=== PATIENT | male | born 1935 | race Hispanic/Latino ===

== ENCOUNTER 2018-08-06 17:11 | Inpatient (IN) | payer OTHER, MEDICARE ==
[~2018-08-06] VITALS: Ht 167.6 cm; Wt 108.9 kg
[~2018-08-06 17:11] MED LIST: ACET1TAB25 PO; ATOR20TA65 PO; CHLO50TA PO; CHOL200074 PO; DIGO125T87 PO; FINA5TAB41 PO; GLIM4TAB3 PO; INSU100C6 SQ; INSU3INS3 SQ; LACT10SO PO; LACT1CAP79 PO; LINA5TAB PO; LOPE2CAP PO; LOSA50TA25 PO; MECL-111 PO; OMEG-148 PO; SITA50TA PO; VITA150T PO; WARF-57 PO; WARF7.5T49 PO
[2018-08-06 17:42] LABS: POTASSIUM 5.2 mmol/L (3.5-5.1)
[2018-08-06 17:47] LABS: ALBUMIN 2.8 g/dL (3.5-5.0); BILIRUBIN,TOTAL 0.5 mg/dL (0.2-1.0)
[2018-08-06 18:11] LABS: INR > 7.00 (0.85-1.15); PROTHROMBIN TIME > 63.0 SEC (9.6-11.6)
[2018-08-06 18:24] LABS: BASOPHILS % (AUTO) 0.6 % (0.0-5.0); EOSINOPHILS % (AUTO) 1.7 % (0.0-8.0); HEMATOCRIT 28.3 % (42-54); LYMPHOCYTES % (AUTO) 13.3 % (21.0-51.0); MEAN CORPUSCULAR HEMOGLOBIN 24.2 pg (27.0-33.0); MEAN CORPUSCULAR HGB CONC 31.6 g/dL (32.0-36.0); MEAN CORPUSCULAR VOLUME 76.5 fL (79-99); NEUTROPHILS % (AUTO) 74.4 % (40.0-77.0); NUCLEATED RED BLOOD CELLS 0.1 % (0.0-0.19); PLATELET COUNT (AUTO) 172 K/uL (130-400); RED CELL DISTRIBUTION WIDTH 20.4 % (11.0-15.5); WHITE BLOOD COUNT (AUTO) 5.1 K/uL (4.8-10.8)
[2018-08-06] MEDS ORDERED: PHYTONADIONE 10 MG/1 ML AMP ONE (20:28)
[2018-08-07] VITALS (7 sets, daily range): BP systolic 118–144; BP diastolic 51–74
[2018-08-07] MEDS ORDERED: HUM10VIA SQ ×2 (02:19)
[2018-08-07] MEDS ORDERED: GABA-531 PO (02:19)
[2018-08-07] MEDS ORDERED: SPIR50TA5 PO (02:19)
[2018-08-07] MEDS ORDERED: DEXTROSE 50%-WATER 50 ML DISP.SYRIN IV PRN (03:45)
[2018-08-07] MEDS ORDERED: PHARMACY COMMUNICATION MISC SCH (03:45)
[2018-08-07] MEDS ORDERED: GLUCAGON 1MG KIT 1 MG ML IM PRN (03:45)
[2018-08-07] MEDS ORDERED: ONDANSETRON HCL MDV 20ML 2 MG/ML VIAL IVP PRN (03:45)
[2018-08-07 04:52] LABS: BASOPHILS % (AUTO) 0.6 % (0.0-5.0); EOSINOPHILS % (AUTO) 3.9 % (0.0-8.0); HEMATOCRIT 27.9 % (42-54); LYMPHOCYTES % (AUTO) 20.9 % (21.0-51.0); MEAN CORPUSCULAR HGB CONC 31.4 g/dL (32.0-36.0); MEAN CORPUSCULAR VOLUME 76.5 fL (79-99); MONOCYTES % (AUTO) 12.7 % (3.0-13.0); NEUTROPHILS % (AUTO) 61.9 % (40.0-77.0); PLATELET COUNT (AUTO) 167 K/uL (130-400); RED BLOOD CELL COUNT(AUTO) 3.65 MIL/uL (4.50-6.20); RED CELL DISTRIBUTION WIDTH 20.8 % (11.0-15.5); WHITE BLOOD COUNT (AUTO) 4.4 K/uL (4.8-10.8)
[2018-08-07 05:07] LABS: ALBUMIN 2.6 g/dL (3.5-5.0); BILIRUBIN,TOTAL 0.5 mg/dL (0.2-1.0); CREATININE 1.9 mg/dL (0.5-1.5); TOTAL PROTEIN, SERUM 5.6 g/dL (6.0-8.3)
[2018-08-07 05:15] LABS: PARTIAL THROMBOPLASTIN TIME 76.3 SEC (26.3-35.5)
[2018-08-07 05:16] LABS: PROTHROMBIN TIME > 63.0 SEC (9.6-11.6)
[2018-08-07 05:18] LABS: INR > 7.00 (0.85-1.15)
[2018-08-07] MEDS ORDERED: LABETALOL 20 MG/4 ML DISP.SYRIN IV PRN (08:00)
[2018-08-07] MEDS ORDERED: ACETAMINOPHEN EXTRA STRENGTH 500 MG TABLET PO PRN (08:00)
[2018-08-07] MEDS: GABAPENTIN 300 MG CAPSULE PO SCH ×2 (10:25→19:50)
[2018-08-07] MEDS: LINAGLIPTIN 5 MG TABLET PO SCH (10:25)
[2018-08-07] MEDS: FINASTERIDE 5 MG TABLET PO SCH (10:25)
[2018-08-07] MEDS: SPIRONOLACTONE 25 MG TAB PO SCH ×2 (10:25→19:50)
[2018-08-07] MEDS: PANTOPRAZOLE 40 MG/VIAL IVP SCH ×2 (10:26→20:39)
[2018-08-07] MEDS: DIGOXIN 125 MCG TABLET PO SCH (10:26)
[2018-08-07] MEDS: PHYTONADIONE 10 MG/1 ML AMP SQ SCH (10:35)
[2018-08-07] MEDS: INSULIN HUMULIN R 100 UNIT/ML 3ML SQ SCH ×3 (11:30→20:50)
[2018-08-07 19:01] LABS: HEMATOCRIT 27.1 % (42-54)
[2018-08-07 19:41] LABS: INR 3.64 (0.85-1.15); PROTHROMBIN TIME 37.3 SEC (9.6-11.6)
[2018-08-07] MEDS: ATORVASTATIN CALCIUM 20 MG TABLET PO SCH (19:50)
[2018-08-07] MEDS: LOSARTAN 50 MG TABLET PO SCH (19:50)
[2018-08-08] VITALS (18 sets, daily range): BP systolic 97–154; BP diastolic 49–78
[2018-08-08 03:13] LABS: HEMATOCRIT 25.3 % (42-54); MEAN CORPUSCULAR HEMOGLOBIN 24.1 pg (27.0-33.0); MEAN CORPUSCULAR HGB CONC 31.6 g/dL (32.0-36.0); MEAN CORPUSCULAR VOLUME 76.3 fL (79-99); NUCLEATED RED BLOOD CELLS 0.1 % (0.0-0.19); PLATELET COUNT (AUTO) 150 K/uL (130-400); RED BLOOD CELL COUNT(AUTO) 3.32 MIL/uL (4.50-6.20); RED CELL DISTRIBUTION WIDTH 20.3 % (11.0-15.5); WHITE BLOOD COUNT (AUTO) 4.2 K/uL (4.8-10.8)
[2018-08-08 03:22] LABS: CREATININE 2.1 mg/dL (0.5-1.5); POTASSIUM 5.2 mmol/L (3.5-5.1)
[2018-08-08 03:23] LABS: INR 2.46 (0.85-1.15); PROTHROMBIN TIME 25.4 SEC (9.6-11.6)
[2018-08-08] MEDS: INSULIN HUMULIN R 100 UNIT/ML 3ML SQ SCH ×4 (06:24→21:58)
[2018-08-08] MEDS ORDERED: PROPOFOL 10 MG/ML 20ML VIAL IV ONE ×2 (07:57)
[2018-08-08] MEDS: PHYTONADIONE 10 MG/1 ML AMP SQ SCH (10:13)
[2018-08-08] MEDS: SPIRONOLACTONE 25 MG TAB PO SCH ×2 (10:13→21:55)
[2018-08-08] MEDS: LINAGLIPTIN 5 MG TABLET PO SCH (10:13)
[2018-08-08] MEDS: PANTOPRAZOLE 40 MG/VIAL IVP SCH ×2 (10:17→21:55)
[2018-08-08] MEDS: GABAPENTIN 300 MG CAPSULE PO SCH ×2 (10:17→21:55)
[2018-08-08] MEDS: DIGOXIN 125 MCG TABLET PO SCH (10:17)
[2018-08-08] MEDS: FINASTERIDE 5 MG TABLET PO SCH (10:17)
[2018-08-08 18:47] LABS: HEMATOCRIT 28.9 % (42-54)
[2018-08-08 18:59] LABS: INR 1.64 (0.85-1.15); PARTIAL THROMBOPLASTIN TIME 33.8 SEC (26.3-35.5); PROTHROMBIN TIME 17.1 SEC (9.6-11.6)
[2018-08-08] MEDS: ATORVASTATIN CALCIUM 20 MG TABLET PO SCH (21:55)
[2018-08-08] MEDS: LOSARTAN 50 MG TABLET PO SCH (21:55)
[2018-08-09 03:13] VITALS: BP 112/66
[2018-08-09 05:24] LABS: BASOPHILS % (AUTO) 0.7 % (0.0-5.0); EOSINOPHILS % (AUTO) 3.3 % (0.0-8.0); HEMATOCRIT 26.9 % (42-54); LYMPHOCYTES % (AUTO) 20.3 % (21.0-51.0); MEAN CORPUSCULAR HEMOGLOBIN 24.2 pg (27.0-33.0); MEAN CORPUSCULAR HGB CONC 31.9 g/dL (32.0-36.0); MEAN CORPUSCULAR VOLUME 75.9 fL (79-99); MONOCYTES % (AUTO) 9.4 % (3.0-13.0); NEUTROPHILS % (AUTO) 66.3 % (40.0-77.0); PLATELET COUNT (AUTO) 185 K/uL (130-400); RED BLOOD CELL COUNT(AUTO) 3.54 MIL/uL (4.50-6.20); RED CELL DISTRIBUTION WIDTH 20.4 % (11.0-15.5); WHITE BLOOD COUNT (AUTO) 4.6 K/uL (4.8-10.8)
[2018-08-09 05:38] LABS: INR 1.53 (0.85-1.15); PROTHROMBIN TIME 15.9 SEC (9.6-11.6)
[2018-08-09 05:49] LABS: ALBUMIN 2.7 g/dL (3.5-5.0); POTASSIUM 5.7 mmol/L (3.5-5.1)
[2018-08-09] MEDS: INSULIN HUMULIN R 100 UNIT/ML 3ML SQ SCH ×4 (06:09→21:06)
[2018-08-09] MEDS ORDERED: SODIUM POLYSTYRENE SULFONATE 15 GM/60 ML ML ONE (06:14)
[2018-08-09] MEDS ORDERED: CALCIUM GLUCONATE 1 GM/10 ML VIAL IV SCH (06:15)
[2018-08-09] MEDS: SODIUM POLYSTYRENE SULFONATE 15 GM/60 ML ML PO SCH (06:19)
[2018-08-09] MEDS ORDERED: CALCIUM GLUCONATE 1 GM in SODIUM CHLORIDE 0.9% 50 ML IV SCH (06:30)
[2018-08-09 08:18] VITALS: BP 126/56
[2018-08-09] MEDS: LINAGLIPTIN 5 MG TABLET PO SCH (09:01)
[2018-08-09] MEDS: DIGOXIN 125 MCG TABLET PO SCH (09:01)
[2018-08-09] MEDS: SPIRONOLACTONE 25 MG TAB PO SCH (09:02)
[2018-08-09] MEDS: PANTOPRAZOLE 40 MG/VIAL IVP SCH ×2 (09:02→19:43)
[2018-08-09] MEDS: GABAPENTIN 300 MG CAPSULE PO SCH ×2 (09:02→19:44)
[2018-08-09] MEDS: FINASTERIDE 5 MG TABLET PO SCH (10:07)
[2018-08-09 11:08] LABS: HEMATOCRIT 26.8 % (42-54)
[2018-08-09 12:07] VITALS: BP 128/67
[2018-08-09] MEDS ORDERED: ALBUTEROL SULFATE 0.083% 2.5 MG/3 ML INH IH ONE (15:45)
[2018-08-09] MEDS ORDERED: SODIUM POLYSTYRENE SULFONATE 15 GM/60 ML ML PO SCH (16:15)
[2018-08-09 16:20] VITALS: BP 134/59
[2018-08-09 18:01] LABS: HEMATOCRIT 28.2 % (42-54)
[2018-08-09 19:00] VITALS: BP 108/92
[2018-08-09] MEDS ORDERED: WARFARIN SODIUM 7.5 MG TAB PO SCH (19:15)
[2018-08-09] MEDS: ATORVASTATIN CALCIUM 20 MG TABLET PO SCH (19:44)
[2018-08-09] MEDS: LOSARTAN 50 MG TABLET PO SCH (19:44)
[2018-08-09 23:00] VITALS: BP 127/66
[2018-08-10 03:00] VITALS: BP 113/54
[2018-08-10] MEDS: SODIUM POLYSTYRENE SULFONATE 15 GM/60 ML ML PO SCH (05:28)
[2018-08-10 05:43] LABS: BASOPHILS % (AUTO) 0.5 % (0.0-5.0); EOSINOPHILS % (AUTO) 3.2 % (0.0-8.0); HEMATOCRIT 25.8 % (42-54); LYMPHOCYTES % (AUTO) 21.1 % (21.0-51.0); MEAN CORPUSCULAR HEMOGLOBIN 24.3 pg (27.0-33.0); MEAN CORPUSCULAR HGB CONC 31.8 g/dL (32.0-36.0); MEAN CORPUSCULAR VOLUME 76.4 fL (79-99); MONOCYTES % (AUTO) 10.8 % (3.0-13.0); NEUTROPHILS % (AUTO) 64.4 % (40.0-77.0); PLATELET COUNT (AUTO) 162 K/uL (130-400); RED BLOOD CELL COUNT(AUTO) 3.37 MIL/uL (4.50-6.20); RED CELL DISTRIBUTION WIDTH 19.9 % (11.0-15.5); WHITE BLOOD COUNT (AUTO) 4.4 K/uL (4.8-10.8)
[2018-08-10 06:00] LABS: POTASSIUM 4.8 mmol/L (3.5-5.1)
[2018-08-10] MEDS: INSULIN HUMULIN R 100 UNIT/ML 3ML SQ SCH ×4 (06:21→22:19)
[2018-08-10 08:00] VITALS: BP 130/63
[2018-08-10] MEDS: GABAPENTIN 300 MG CAPSULE PO SCH ×2 (09:02→21:41)
[2018-08-10] MEDS: LINAGLIPTIN 5 MG TABLET PO SCH (09:03)
[2018-08-10] MEDS: DIGOXIN 125 MCG TABLET PO SCH (09:03)
[2018-08-10] MEDS: FINASTERIDE 5 MG TABLET PO SCH (09:04)
[2018-08-10] MEDS: PANTOPRAZOLE 40 MG/VIAL IVP SCH ×2 (09:04→21:40)
[2018-08-10] MEDS ORDERED: COMPOUND IV MISC 1 EACH IVSOLN MISC PRN (09:15)
[2018-08-10] MEDS: FUROSEMIDE 10 MG/ML 2ML VIAL IV SCH (09:25)
[2018-08-10 11:05] LABS: INR 1.35 (0.85-1.15); PARTIAL THROMBOPLASTIN TIME 29.3 SEC (26.3-35.5); PROTHROMBIN TIME 14.1 SEC (9.6-11.6)
[2018-08-10] MEDS: IRON SUCROSE COMPLEX 100 MG in SODIUM CHLORIDE 0.9% 50 ML IV SCH (11:07)
[2018-08-10 11:39] VITALS: BP 145/74
[2018-08-10 16:00] VITALS: BP 121/70
[2018-08-10 19:00] VITALS: BP 133/70
[2018-08-10] MEDS: ATORVASTATIN CALCIUM 20 MG TABLET PO SCH (21:41)
[2018-08-11] VITALS: BP 138/67
[2018-08-11 04:00] VITALS: BP 127/56
[2018-08-11 05:04] LABS: BASOPHILS % (AUTO) 0.7 % (0.0-5.0); EOSINOPHILS % (AUTO) 2.6 % (0.0-8.0); HEMATOCRIT 26.9 % (42-54); MEAN CORPUSCULAR HEMOGLOBIN 24.8 pg (27.0-33.0); MEAN CORPUSCULAR HGB CONC 32.5 g/dL (32.0-36.0); MEAN CORPUSCULAR VOLUME 76.4 fL (79-99); MONOCYTES % (AUTO) 9.1 % (3.0-13.0); NEUTROPHILS % (AUTO) 68.6 % (40.0-77.0); NUCLEATED RED BLOOD CELLS 0.1 % (0.0-0.19); PLATELET COUNT (AUTO) 201 K/uL (130-400); RED BLOOD CELL COUNT(AUTO) 3.52 MIL/uL (4.50-6.20); RED CELL DISTRIBUTION WIDTH 19.9 % (11.0-15.5); WHITE BLOOD COUNT (AUTO) 4.7 K/uL (4.8-10.8)
[2018-08-11 05:14] LABS: POTASSIUM 4.8 mmol/L (3.5-5.1)
[2018-08-11 05:17] LABS: INR 1.43 (0.85-1.15); PARTIAL THROMBOPLASTIN TIME 29.9 SEC (26.3-35.5); PROTHROMBIN TIME 14.9 SEC (9.6-11.6)
[2018-08-11] MEDS: INSULIN HUMULIN R 100 UNIT/ML 3ML SQ SCH ×3 (06:29→17:09)
[2018-08-11 07:00] VITALS: BP 114/47
[2018-08-11] MEDS: FUROSEMIDE 10 MG/ML 2ML VIAL IV SCH (09:00)
[2018-08-11 09:23] LABS: ALBUMIN 2.8 g/dL (3.5-5.0); BILIRUBIN,TOTAL 0.6 mg/dL (0.2-1.0); TOTAL PROTEIN, SERUM 6.1 g/dL (6.0-8.3)
[2018-08-11] MEDS: IRON SUCROSE COMPLEX 100 MG in SODIUM CHLORIDE 0.9% 50 ML IV SCH (10:19)
[2018-08-11] MEDS: PANTOPRAZOLE 40 MG/VIAL IVP SCH (10:20)
[2018-08-11] MEDS: GABAPENTIN 300 MG CAPSULE PO SCH (10:20)
[2018-08-11] MEDS: FINASTERIDE 5 MG TABLET PO SCH (10:21)
[2018-08-11] MEDS: LINAGLIPTIN 5 MG TABLET PO SCH (10:21)
[2018-08-11] MEDS: DIGOXIN 125 MCG TABLET PO SCH (10:21)
[2018-08-11 11:00] VITALS: BP 139/67
[2018-08-11 16:00] VITALS: BP 141/61
[2018-08-11] MEDS ORDERED: WARFARIN SODIUM 2 MG TAB ONE (19:04)
== END 2018-08-11 19:30 | disposition home or self-care (01) | DRG 308 ==
LOC: EDH 17:11 → EDHIP 19:30 → 3CH 23:49
PROVIDERS: ADMIT Hospitalist; ATTEND Hospitalist
PROC: 0DJ08ZZ Inspection of Upper Intestinal Tract, Via Natural or Artificial Opening Endoscopic (ICD-10-PCS; principal; 2018-08-08)
DX: I48.91 Unspecified atrial fibrillation (principal); K29.71 Gastritis, unspecified, with bleeding; I85.01 Esophageal varices with bleeding; E44.0 Moderate protein-calorie malnutrition; N17.9 Acute kidney failure, unspecified; K92.1 Melena; R79.1 Abnormal coagulation profile; D63.1 Anemia in chronic kidney disease; N18.9 Chronic kidney disease, unspecified; I12.9 Hypertensive chronic kidney disease with stage 1 through stage 4 chronic kidney disease, or unspecified chronic kidney disease; E66.9 Obesity, unspecified; E11.22 Type 2 diabetes mellitus with diabetic chronic kidney disease; D72.819 Decreased white blood cell count, unspecified; E11.21 Type 2 diabetes mellitus with diabetic nephropathy; E78.00 Pure hypercholesterolemia, unspecified; E78.5 Hyperlipidemia, unspecified; E87.5 Hyperkalemia; I25.10 Atherosclerotic heart disease of native coronary artery without angina pectoris; F32.9 Major depressive disorder, single episode, unspecified; F41.9 Anxiety disorder, unspecified; D50.9 Iron deficiency anemia, unspecified; K31.89 Other diseases of stomach and duodenum; T45.515A Adverse effect of anticoagulants, initial encounter; Z79.01 Long term (current) use of anticoagulants; Z68.38 Body mass index [BMI] 38.0-38.9, adult; Z79.4 Long term (current) use of insulin; Z83.3 Family history of diabetes mellitus; Z79.899 Other long term (current) drug therapy; Z90.49 Acquired absence of other specified parts of digestive tract; Y92.89 Other specified places as the place of occurrence of the external cause
CPT/HCPCS: 36415; 43235; 76700; 80048; 80053; 82270; 82550; 82948; 84132; 84484; 85014; 85018; 85025; 85027; 85610; 85730; 86850; 86900; 86901; 93005; 94640; 97039; C9113; J0610; J1756; J1815; J1940; J2704; J3430

== ENCOUNTER 2018-09-01 15:22 | Emergency (ER) | payer OTHER, MEDICARE ==
[~2018-09-01 15:22] MED LIST changes: -ACET1TAB25 PO; -CHLO50TA PO; -CHOL200074 PO; +GABA-531 PO; -GLIM4TAB3 PO; +HUM10VIA SQ; -INSU100C6 SQ; -INSU3INS3 SQ; -LACT1CAP79 PO; -LOPE2CAP PO; -OMEG-148 PO; -SITA50TA PO; +SPIR50TA5 PO; -VITA150T PO; -WARF-57 PO; -WARF7.5T49 PO
[2018-09-01] MEDS ORDERED: DEXTROSE 50%-WATER 50 ML DISP.SYRIN IV ONE (15:32)
[2018-09-01 15:46] LABS: BASOPHILS % (AUTO) 0.8 % (0.0-5.0); EOSINOPHILS % (AUTO) 1.2 % (0.0-8.0); HEMATOCRIT 28.5 % (42-54); LYMPHOCYTES % (AUTO) 5.9 % (21.0-51.0); MEAN CORPUSCULAR HEMOGLOBIN 26.4 pg (27.0-33.0); MEAN CORPUSCULAR HGB CONC 31.6 g/dL (32.0-36.0); MEAN CORPUSCULAR VOLUME 83.5 fL (79-99); MONOCYTES % (AUTO) 8.4 % (3.0-13.0); NEUTROPHILS % (AUTO) 83.7 % (40.0-77.0); PLATELET COUNT (AUTO) 124 K/uL (130-400); RED BLOOD CELL COUNT(AUTO) 3.42 MIL/uL (4.50-6.20); RED CELL DISTRIBUTION WIDTH 23.9 % (11.0-15.5); WHITE BLOOD COUNT (AUTO) 5.5 K/uL (4.8-10.8)
[2018-09-01] MEDS ORDERED: DEXTROSE 10%-WATER 1,000 ML IV ONE (15:48)
[2018-09-01 15:55] LABS: CREATININE 1.8 mg/dL (0.5-1.5); POTASSIUM 4.7 mmol/L (3.5-5.1)
[2018-09-01 15:59] LABS: ALBUMIN 2.7 g/dL (3.5-5.0); BILIRUBIN,TOTAL 0.9 mg/dL (0.2-1.0); TOTAL PROTEIN, SERUM 5.9 g/dL (6.0-8.3)
== END 2018-09-01 18:58 | disposition home or self-care (01) ==
LOC: EDH 15:22
DX: E11.641 Type 2 diabetes mellitus with hypoglycemia with coma (principal); J40 Bronchitis, not specified as acute or chronic; E78.5 Hyperlipidemia, unspecified; I10 Essential (primary) hypertension; Z90.49 Acquired absence of other specified parts of digestive tract; Z98.890 Other specified postprocedural states
CPT/HCPCS: 36415; 80053; 82948 ×3; 85025; 96374; 96375; 99284; J3490; J7070

== ENCOUNTER 2018-09-02 02:34 | Inpatient (IN) | payer OTHER, MEDICARE ==
[~2018-09-02] VITALS: Ht 167.6 cm; Wt 112.8 kg
[2018-09-02] MEDS ORDERED: DEXTROSE 50%-WATER 50 ML DISP.SYRIN IV ONE ×2 (02:56→07:01)
[2018-09-02 03:13] LABS: CREATININE 1.9 mg/dL (0.5-1.5); POTASSIUM 4.6 mmol/L (3.5-5.1)
[2018-09-02 03:17] LABS: ALBUMIN 2.8 g/dL (3.5-5.0); BILIRUBIN,DIRECT 0.3 mg/dL (0.0-0.3); BILIRUBIN,TOTAL 0.9 mg/dL (0.2-1.0); TOTAL PROTEIN, SERUM 6.1 g/dL (6.0-8.3)
[2018-09-02 03:20] LABS: BASOPHILS % (AUTO) 0.6 % (0.0-5.0); EOSINOPHILS % (AUTO) 1.4 % (0.0-8.0); HEMATOCRIT 28.4 % (42-54); LYMPHOCYTES % (AUTO) 5.5 % (21.0-51.0); MEAN CORPUSCULAR HGB CONC 32.1 g/dL (32.0-36.0); MEAN CORPUSCULAR VOLUME 84.2 fL (79-99); MONOCYTES % (AUTO) 9.3 % (3.0-13.0); NEUTROPHILS % (AUTO) 83.2 % (40.0-77.0); PLATELET COUNT (AUTO) 132 K/uL (130-400); RED BLOOD CELL COUNT(AUTO) 3.37 MIL/uL (4.50-6.20); RED CELL DISTRIBUTION WIDTH 23.8 % (11.0-15.5); WHITE BLOOD COUNT (AUTO) 5.2 K/uL (4.8-10.8)
[2018-09-02 03:39] LABS: APPEARANCE,URINE Clear (CLEAR); BILIRUBIN,URINE Negative (NEGATIVE); COLOR,URINE Yellow (YELLOW); GLUCOSE, URINE (UA) Negative (NEGATIVE); KETONES,URINE Negative (NEGATIVE); LEUKOCYTE ESTERASE ,URINE Negative (NEGATIVE); NITRATE,URINE Negative (NEGATIVE); OCCULT BLOOD,URINE Negative (NEGATIVE); PROTEIN,URINE Negative (NEGATIVE); UROBILINOGEN,URINE 0.2 mg/dL (0.2-1.0)
[2018-09-02 03:42] LABS: INR 1.15 (0.85-1.15); PARTIAL THROMBOPLASTIN TIME 24.7 SEC (26.3-35.5)
[2018-09-02] MEDS ORDERED: GLUCAGON 1MG KIT 1 MG ML IM PRN (05:15)
[2018-09-02] MEDS ORDERED: DEXTROSE 50%-WATER 50 ML DISP.SYRIN IV PRN (05:15)
[2018-09-02] MEDS ORDERED: ONDANSETRON HCL 4 MG/2 ML VIAL IV PRN (05:45)
[2018-09-02] MEDS ORDERED: ACETAMINOPHEN 325 MG TAB PO PRN (05:45)
[2018-09-02 06:46] LABS: HEMOGLOBIN A1C 6.6 % (4.0-6.0)
[2018-09-02 06:58] LABS: CREATINE KINASE, TOTAL 265 U/L (21-232); MYOGLOBIN 220 ng/mL (10-92); TROPONIN I < 0.04 ng/mL (0.00-0.06)
[2018-09-02] MEDS: PANTOPRAZOLE SODIUM 40 MG TABLET.DR PO SCH (09:54)
[2018-09-02 10:00] VITALS: BP 141/70
[2018-09-02] MEDS ORDERED: LACTULOSE 20 GM/30 ML UDCUP PO PRN (10:45)
[2018-09-02] MEDS ORDERED: MECLIZINE HCL 25 MG TABLET PO PRN (10:45)
[2018-09-02] MEDS: INSULIN HUMULIN R 100 UNIT/ML 3ML SQ SCH ×3 (11:30→21:00)
[2018-09-02 11:42] VITALS: BP 174/87
[2018-09-02] MEDS ORDERED: LIDOCAINE HCL-MPF 1% 2ML VIAL IVP PRN (15:00)
[2018-09-02] MEDS ORDERED: FUROSEMIDE 10 MG/ML 2ML VIAL IV SCH (15:00)
[2018-09-02] MEDS ORDERED: POTASSIUM CHLORIDE 10MEQ/100ML 100 ML IV PRN (15:00)
[2018-09-02] MEDS ORDERED: POTASSIUM CHLORIDE 20 MEQ ERTAB PO PRN (15:00)
[2018-09-02] MEDS ORDERED: POTASSIUM CHLORIDE 10% ELIXIR 20 MEQ/15 ML UDCUP PO PRN (15:00)
[2018-09-02 16:00] VITALS: BP 161/77
[2018-09-02] MEDS ORDERED: DIGOXIN 125 MCG TABLET PO SCH (16:00)
[2018-09-02] MEDS: LEVOFLOXACIN 250 MG/D5W 50ML 50 ML IV SCH (16:30)
[2018-09-02] MEDS ORDERED: METOPROLOL TARTRATE 1 MG/ML 5ML VIAL IV PRN (16:30)
[2018-09-02] MEDS: IPRATROPIUM/ALBUTEROL SULFATE 3 ML SOLUTION IH SCH ×2 (18:48→23:17)
[2018-09-02 19:00] VITALS: BP 146/92
[2018-09-02] MEDS ORDERED: SPIRONOLACTONE 25 MG TAB PO SCH (21:00)
[2018-09-02 21:26] LABS: CREATINE KINASE, TOTAL 201 U/L (21-232); MYOGLOBIN 171 ng/mL (10-92); TROPONIN I < 0.04 ng/mL (0.00-0.06)
[2018-09-02] MEDS: GABAPENTIN 300 MG CAPSULE PO SCH (21:32)
[2018-09-02] MEDS: ATORVASTATIN CALCIUM 20 MG TABLET PO SCH (21:33)
[2018-09-02] MEDS: LOSARTAN 50 MG TABLET PO SCH (21:33)
[2018-09-02] MEDS ORDERED: METOPROLOL TARTRATE 25 MG TAB PO SCH ×2 (21:45)
[2018-09-03] VITALS (7 sets, daily range): BP systolic 104–146; BP diastolic 55–74
[2018-09-03 05:47] LABS: HEMATOCRIT 29.5 % (42-54); MEAN CORPUSCULAR HEMOGLOBIN 27.7 pg (27.0-33.0); MEAN CORPUSCULAR HGB CONC 33.3 g/dL (32.0-36.0); MEAN CORPUSCULAR VOLUME 83.4 fL (79-99); PLATELET COUNT (AUTO) 143 K/uL (130-400); RED BLOOD CELL COUNT(AUTO) 3.54 MIL/uL (4.50-6.20); RED CELL DISTRIBUTION WIDTH 23.2 % (11.0-15.5); WHITE BLOOD COUNT (AUTO) 5.5 K/uL (4.8-10.8)
[2018-09-03 05:49] LABS: ALBUMIN 2.8 g/dL (3.5-5.0); CREATININE 2.1 mg/dL (0.5-1.5); DIGOXIN 0.33 ng/mL (0.50-2.00); POTASSIUM 5.4 mmol/L (3.5-5.1)
[2018-09-03 06:15] LABS: INR 1.14 (0.85-1.15); PARTIAL THROMBOPLASTIN TIME 28.4 SEC (26.3-35.5); PROTHROMBIN TIME 11.9 SEC (9.6-11.6)
[2018-09-03] MEDS: IPRATROPIUM/ALBUTEROL SULFATE 3 ML SOLUTION IH SCH ×4 (07:00→23:15)
[2018-09-03] MEDS: INSULIN HUMULIN R 100 UNIT/ML 3ML SQ SCH ×4 (07:30→20:41)
[2018-09-03] MEDS ORDERED: FUROSEMIDE 40 MG TABLET PO SCH (09:00)
[2018-09-03] MEDS: GABAPENTIN 300 MG CAPSULE PO SCH ×2 (11:27→20:30)
[2018-09-03] MEDS: PANTOPRAZOLE SODIUM 40 MG TABLET.DR PO SCH (11:27)
[2018-09-03] MEDS: FINASTERIDE 5 MG TABLET PO SCH (11:27)
[2018-09-03] MEDS: LEVOFLOXACIN 250 MG/D5W 50ML 50 ML IV SCH (11:34)
[2018-09-03] MEDS ORDERED: CEFTRIAXONE SODIUM 1 GM IVP SCH (16:30)
[2018-09-03] MEDS: FUROSEMIDE 10 MG/ML 4ML VIAL IV SCH (16:48)
[2018-09-03] MEDS ORDERED: BENZONATATE 100 MG CAPSULE PO PRN (17:30)
[2018-09-03] MEDS: GUAIFENESIN-DM 200/20 MG 10 ML PO PRN ×2 (18:53→23:56)
[2018-09-03] MEDS: ATORVASTATIN CALCIUM 20 MG TABLET PO SCH (20:30)
[2018-09-03] MEDS: METOPROLOL TARTRATE 25 MG TAB PO SCH (20:30)
[2018-09-03] MEDS: LOSARTAN 50 MG TABLET PO SCH (20:30)
[2018-09-04 00:14] VITALS: BP 114/66
[2018-09-04 04:00] VITALS: BP 119/58
[2018-09-04 04:48] LABS: HEMATOCRIT 30.1 % (42-54); MEAN CORPUSCULAR HEMOGLOBIN 27.4 pg (27.0-33.0); MEAN CORPUSCULAR HGB CONC 32.8 g/dL (32.0-36.0); MEAN CORPUSCULAR VOLUME 83.8 fL (79-99); NUCLEATED RED BLOOD CELLS 0.1 % (0.0-0.19); PLATELET COUNT (AUTO) 130 K/uL (130-400); RED BLOOD CELL COUNT(AUTO) 3.59 MIL/uL (4.50-6.20); RED CELL DISTRIBUTION WIDTH 23.5 % (11.0-15.5); WHITE BLOOD COUNT (AUTO) 4.3 K/uL (4.8-10.8)
[2018-09-04 05:01] LABS: ALBUMIN 2.7 g/dL (3.5-5.0); BILIRUBIN,TOTAL 0.8 mg/dL (0.2-1.0); CREATININE 2.2 mg/dL (0.5-1.5); TOTAL PROTEIN, SERUM 6.3 g/dL (6.0-8.3)
[2018-09-04] MEDS: FUROSEMIDE 10 MG/ML 4ML VIAL IV SCH (05:04)
[2018-09-04] MEDS: IPRATROPIUM/ALBUTEROL SULFATE 3 ML SOLUTION IH SCH ×2 (06:20→12:00)
[2018-09-04] MEDS: INSULIN HUMULIN R 100 UNIT/ML 3ML SQ SCH ×2 (06:36→12:43)
[2018-09-04 08:21] VITALS: BP 117/56
[2018-09-04 08:22] VITALS: BP 104/57
[2018-09-04 08:23] VITALS: BP 110/57
[2018-09-04] MEDS: LEVOFLOXACIN 250 MG/D5W 50ML 50 ML IV SCH (10:15)
[2018-09-04] MEDS: FINASTERIDE 5 MG TABLET PO SCH (10:15)
[2018-09-04] MEDS: PANTOPRAZOLE SODIUM 40 MG TABLET.DR PO SCH (10:15)
[2018-09-04] MEDS: METOPROLOL TARTRATE 25 MG TAB PO SCH (10:16)
[2018-09-04] MEDS: GABAPENTIN 300 MG CAPSULE PO SCH (10:16)
[2018-09-04] MEDS ORDERED: METO25 PO (10:27)
[2018-09-04] MEDS ORDERED: FURO40TA7 PO (10:27)
[2018-09-04 11:47] VITALS: BP 118/70
[2018-09-04] MEDS ORDERED: FUROSEMIDE 40 MG TABLET PO SCH (17:00)
== END 2018-09-04 14:55 | disposition home or self-care (01) | DRG 637 ==
LOC: EDH 02:34 → EDHIP 05:07 → 3AH 05:44
PROVIDERS: ADMIT Hospitalist; ATTEND Hospitalist
DX: E11.649 Type 2 diabetes mellitus with hypoglycemia without coma (principal); J18.9 Pneumonia, unspecified organism; I50.33 Acute on chronic diastolic (congestive) heart failure; I13.0 Hypertensive heart and chronic kidney disease with heart failure and stage 1 through stage 4 chronic kidney disease, or unspecified chronic kidney disease; E46 Unspecified protein-calorie malnutrition; I85.00 Esophageal varices without bleeding; E11.22 Type 2 diabetes mellitus with diabetic chronic kidney disease; Z68.32 Body mass index [BMI] 32.0-32.9, adult; E66.9 Obesity, unspecified; I12.9 Hypertensive chronic kidney disease with stage 1 through stage 4 chronic kidney disease, or unspecified chronic kidney disease; N18.3 Chronic kidney disease, stage 3 (moderate); I48.2 Chronic atrial fibrillation; D50.9 Iron deficiency anemia, unspecified; E78.5 Hyperlipidemia, unspecified; I25.10 Atherosclerotic heart disease of native coronary artery without angina pectoris; W18.30XA Fall on same level, unspecified, initial encounter; E87.5 Hyperkalemia; K29.70 Gastritis, unspecified, without bleeding; S40.022A Contusion of left upper arm, initial encounter; Z79.01 Long term (current) use of anticoagulants; Z79.899 Other long term (current) drug therapy; Z91.14 Patient's other noncompliance with medication regimen; Z79.4 Long term (current) use of insulin; Z90.49 Acquired absence of other specified parts of digestive tract; Y93.89 Activity, other specified; Y92.89 Other specified places as the place of occurrence of the external cause; Y99.8 Other external cause status; Z83.3 Family history of diabetes mellitus; Z55.0 Illiteracy and low-level literacy
CPT/HCPCS: 36415; 70450; 71045; 80048; 80053; 80076; 80162; 81003; 82550; 82948; 83036; 83690; 83874; 84484; 85025; 85027; 85610; 85730; 87040; 87088; 93005; 93306; 94640; 94664; 96374; 96375; 97039; J0696; J1815; J1940; J1956; J3490; J7070